=== PATIENT | male | born 1990 | race African-American/Black ===

== ENCOUNTER 2019-12-07 17:07 | Emergency (ER) | payer SELFPAY | END 2019-12-07 19:15 | disposition home or self-care (01) | LOC: ERS 17:07 | DX: H10.11 Acute atopic conjunctivitis, right eye (principal); F17.210 Nicotine dependence, cigarettes, uncomplicated | CPT/HCPCS: 99283 ==

== ENCOUNTER 2020-01-07 17:49 | Emergency (ER) | payer SELFPAY | END 2020-01-07 19:53 | disposition home or self-care (01) | LOC: ERS 17:49 | DX: K02.9 Dental caries, unspecified (principal); F17.210 Nicotine dependence, cigarettes, uncomplicated | CPT/HCPCS: 99282 ==

== ENCOUNTER 2020-05-04 18:37 | Emergency (ER) | payer SELFPAY | END 2020-05-04 19:55 | disposition home or self-care (01) | LOC: ERS 18:37 | DX: M62.830 Muscle spasm of back (principal); F17.210 Nicotine dependence, cigarettes, uncomplicated | CPT/HCPCS: 93005 ==

== ENCOUNTER 2020-08-04 23:27 | Emergency (ER) | payer SELFPAY | END 2020-08-05 00:23 | disposition home or self-care (01) | LOC: ERS 23:27 | DX: K08.89 Other specified disorders of teeth and supporting structures (principal); F17.210 Nicotine dependence, cigarettes, uncomplicated | CPT/HCPCS: 99281 ==

== ENCOUNTER 2021-07-20 19:31 | Emergency (ER) | payer OTHER, SELFPAY ==
[2021-07-20] MEDS ORDERED: Ketorolac Tromethamine 30 MG/ML VIAL ONE (20:51)
== END 2021-07-20 22:10 | disposition home or self-care (01) ==
LOC: ERS 19:31
DX: S40.011A Contusion of right shoulder, initial encounter (principal); F17.210 Nicotine dependence, cigarettes, uncomplicated; V89.2XXA Person injured in unspecified motor-vehicle accident, traffic, initial encounter
CPT/HCPCS: 71045; 96372; J1885

== ENCOUNTER 2024-10-13 17:55 | Emergency (ER) | payer OTHER, SELFPAY ==
[2024-10-13 18:22] LABS: #Basophils 0.03 10x3/uL (0.0-0.2); #Eosinophils 0.14 10x3/uL (0.0-0.7); #Monocytes 0.61 10x3/uL (0.11-0.59); #Neutrophils 4.39 10x3/uL (1.40-6.50); %Basophils 0.4 % (0.0-1.0); %Eosinophils 2.0 % (0.0-10.0); %Lymphocytes 25.0 % (21.0-51.0); %Monocytes 8.8 % (0.0-10.0); %Neutrophils 63.5 % (42.0-75.0); Hematocrit 38.4 % (42.0-52.0); Hemoglobin 13.2 g/dL (14.0-18.0); Mean Corpuscular Hemoglobin 30.3 pg (27.0-31.0); Mean Corpuscular Volume 88.3 fL (78.0-98.0); Platelet Count 389 10x3/uL (130-400); Red Blood Cell (RBC) Count 4.35 mill/uL (4.70-6.10); White Blood Cell (WBC) Count 6.92 10x3/uL (4.8-10.8)
[2024-10-13 18:51] LABS: Acetaminophen Less than 10 mcg/mL (Less than 10); Salicylate Less than 8.0 mg/dL (Less than 8.0)
[2024-10-13 18:52] LABS: ALT (SGPT) 44 U/L (Less than 45); AST (SGOT) 50 U/L (11-34); Albumin 4.3 g/dL (3.1-4.5); Alkaline Phosphatase 83 U/L (40-110); Anion Gap 18 mmol/L (10-20); BUN (Urea Nitrogen) 11 mg/dL (8.9-20.6); Bilirubin, Total 0.6 mg/dL (0.3-1.2); CK (CPK) 1354 U/L (30-200); Calc. Creatinine Clearance 0 mL/min (70-130); Calcium 9.4 mg/dL (7.8-10.44); Carbon Dioxide 20 mmol/L (22-29); Chloride 109 mmol/L (98-107); Globulin 3.1 g/dL (2.4-3.5); Glucose 182 mg/dL (70-105); Potassium 3.0 mmol/L (3.5-5.1); Sodium 144 mmol/L (136-145)
== END 2024-10-13 23:21 | disposition home or self-care (01) ==
LOC: ERS 17:55
DX: S00.81XA Abrasion of other part of head, initial encounter (principal); T79.6XXA Traumatic ischemia of muscle, initial encounter; F17.210 Nicotine dependence, cigarettes, uncomplicated; Y03.0XXA Assault by being hit or run over by motor vehicle, initial encounter
CPT/HCPCS: 70450; 80053; 80307; 82550; 84443; 85025; 93005; 96360